=== PATIENT | female | born 1980 | race Caucasian/White ===

== ENCOUNTER 2019-11-09 11:11 | Emergency (ER) | payer BC ==
[2019-11-09] MEDS ORDERED: LIDOCAINE 1% MPF 5 ML VIAL ONE (11:56)
--- NOTE | 2019-11-09 12:15 | EDPHYS ---
Physician Documentation [facility] Name: Ruperto Rosa Age: 39 yrs Sex: Female : 1980 Arrival Date: 11/09/2019 Time: 11:14 Bed 15 Private MD: ED Physician Jaden Felix HPI: 11/08 11:39 This 39 yrs old Female presents to ER via Ambulatory with complaints of Wrist jr8 laceration. 11:39 The patient or guardian reports a laceration, clean, 2.5 cm(s), simple. The complaints jr8 affect the palmar aspect left hand near CMC region. Context: The problem was sustained at home, resulted from cutting object. Onset: The symptoms/episode began/occurred acutely, today. Modifying factors: The symptoms are alleviated by nothing, the symptoms are aggravated by nothing. Associated signs and symptoms: The patient has no apparent associated signs or symptoms. Severity of symptoms: At their worst the symptoms were mild, in the emergency department the symptoms are unchanged. The patient has not experienced similar symptoms in the past. The patient has not recently seen a physician. Historical: - Allergies: 11:23 Synthroid; ss - PMHx: 11:23 Hypothyroidism; Hypertension; ss - Immunization history:: Adult Immunizations up to date. - Social history:: Smoking status: Patient denies any tobacco usage or history of. ROS: 11:39 Eyes: Negative for injury, pain, redness, and discharge, ENT: Negative for injury, jr8 pain, and discharge, Neck: Negative for injury, pain, and swelling, Cardiovascular: Negative for chest pain, palpitations, and edema, Respiratory: Negative for shortness of breath, cough, wheezing, and pleuritic chest pain, Abdomen/GI: Negative for abdominal pain, nausea, vomiting, diarrhea, and constipation, Back: Negative for injury and pain, MS/Extremity: Negative for injury and deformity, Neuro: Negative for headache, weakness, numbness, tingling, and seizure. 11:39 Skin: Positive for laceration(s). Exam: 11:39 Constitutional: This is a well developed, well nourished patient who is awake, alert, jr8 and in no acute distress. Cardiovascular: Regular rate and rhythm with a normal S1 and S2. No gallops, murmurs, or rubs. Normal PMI, no JVD. No pulse deficits. Respiratory: Lungs have equal breath sounds bilaterally, clear to auscultation and percussion. No rales, rhonchi or wheezes noted. No increased work of breathing, no retractions or nasal flaring. MS/ Extremity: Pulses equal, no cyanosis. Neurovascular intact. Full, normal range of motion. Neuro: Awake and alert, GCS 15, oriented to person, place, time, and situation. Cranial nerves II-XII grossly intact. Motor strength 5/5 in all extremities. Sensory grossly intact. Cerebellar exam normal. Normal gait. 11:39 Skin: injury, laceration(s), the wound is approximately 2.5 cm(s), with a depth of .2 cm(s), of the palmar aspect left hand/wrist region, that can be described as no foreign body, linear, without bleeding. Vital Signs: 11:21 BP 116 / 82; Pulse 78; Resp 14; Temp 98.0(TE); Pulse Ox 99% on R/A; Weight 62.6 kg; ss Height 5 ft. 3 in. (160.02 cm); Pain 0/10; 11:21 Body Mass Index 24.45 (62.60 kg, 160.02 cm) ss Laceration: 11:39 Wound Repair of 2.5cm ( 1.0in ) subcutaneous laceration to left hand. Linear shaped.. jr8 Distal neuro/vascular/tendon intact. Anesthesia: Local anesthetic administered with 2 mls of 1% lidocaine. Wound prep: Moderate cleansing with betadine, Wound irrigation with saline, Wound explored moderately. Skin closed with 2 5-0 Prolene using interrupted sutures and sterile technique. Patient tolerated well. MDM: 11:27 Patient medically screened. jr8 11:39 Data reviewed: vital signs, nurses notes, and as a result, I will discharge patient. jr8 Data interpreted: Pulse oximetry: on room air is 99 %. Interpretation: normal. Counseling: I had a detailed discussion with the patient and/or guardian regarding: the historical points, exam findings, and any diagnostic results supporting the discharge/admit diagnosis, the need for outpatient follow up, a family practitioner, to return to the emergency department if symptoms worsen or persist or if there are any questions or concerns that arise at home. 11/08 11:39 Order name: Prolene, Sutures; Complete Time: 8 11/08 11:39 Order name: Dressing - Wound; Complete Time: 12:14 8 11/08 11:39 Order name: Gloves, Sterile; Complete Time: 8 11/08 11:39 Order name: Setup Suture Tray; Complete Time: Administered Medications: : Drug: Lidocaine (1 %) 5 mg {Note: given to [employer]FUELING [employer]END[employer] student.} Route: Infiltration; sv Disposition: 13:04 Co-signature as Attending Physician, Jaden Felix MD I agree with the assessment and kdr plan of care. Disposition: 11/09/19 12:14 Discharged to Home. Impression: Laceration without foreign body of left hand. - Condition is Stable. - Discharge Instructions: Laceration Care, Adult. - Medication Reconciliation Form, Thank You Letter, Antibiotic Education, Prescription Opioid Use form. - Follow up: Private Physician; When: 7 - 10 days; Reason: Wound Recheck, Recheck today's complaints, Continuance of care, Staple/Suture removal, Re-evaluation by your physician. - Problem is new. - Symptoms have improved. Signatures: Annette Luke RN RN Jaden Willett MD MD [facility] Liliya Zhou RN RN Pio Shepherd PA PA jr8 Li Pedraza RN RN Corrections: (The following items were deleted from the chart) 12:27 12:14 11/09/2019 12:14 Discharged to Home. Impression: Laceration without foreign body ah of left hand. Condition is Stable. Discharge Instructions: Laceration Care, Adult. Forms are Medication Reconciliation Form, Thank You Letter, Antibiotic Education, Prescription Opioid Use. Follow up: Private Physician; When: 7 - 10 days; Reason: Wound Recheck, Recheck today's complaints, Continuance of care, Staple/Suture removal, Re-evaluation by your physician. Problem is new. Symptoms have improved. jr8
--- NOTE | 2019-11-09 12:15 | ER ---
Nurse's Notes [facility] Name: Ruperto Rosa Age: 39 yrs Sex: Female : 1980 Arrival Date: 11/09/2019 Time: 11:14 Bed 15 Private MD: Diagnosis: Laceration without foreign body of left hand Presentation: 11/08 11:21 Chief complaint: Patient states: Approximately 1 cm laceration to L hand that occurred ss with blade while taking decals off of car just prior to arrival. No active bleeding noted. Coronavirus screen: Client denies travel out of the [place] in the last 14 days. At this time, the client does not indicate any symptoms associated with coronavirus-19. Ebola Screen: Patient denies exposure to infectious person. Patient denies travel to an Ebola-affected area in the 21 days before illness onset. Initial Sepsis Screen: Does the patient meet any 2 criteria? No. Patient's initial sepsis screen is negative. Does the patient have a suspected source of infection? No. Patient's initial sepsis screen is negative. Risk Assessment: Do you want to hurt yourself or someone else? Patient reports no desire to harm self or others. Onset of symptoms was November 09, 2019. 11:21 Method Of Arrival: Ambulatory ss 11:21 Acuity: YENNI 4 ss Historical: - Allergies: 11:23 Synthroid; ss - PMHx: 11:23 Hypothyroidism; Hypertension; ss - Immunization history:: Adult Immunizations up to date. - Social history:: Smoking status: Patient denies any tobacco usage or history of. Screenin:45 Abuse screen: Denies threats or abuse. Denies injuries from another. Nutritional sv screening: No deficits noted. Tuberculosis screening: No symptoms or risk factors identified. Fall Risk None identified. Assessment: 11:45 General: Appears in no apparent distress. comfortable, well groomed, well developed, sv Behavior is calm, cooperative, appropriate for age. Pain: Denies pain. Neuro: Level of Consciousness is awake, alert, obeys commands, Oriented to person, place, time, situation, Moves all extremities. Full function Gait is steady, Speech is normal. Respiratory: Respiratory effort is even, unlabored, Respiratory pattern is regular, symmetrical. Derm: Skin is pink, warm \T\ dry. Injury Description: Laceration sustained to palmar aspect of left wrist is 0.5 to 2.5 cm long, not bleeding, was sustained less than 30 minutes ago. Vital Signs: 11:21 BP 116 / 82; Pulse 78; Resp 14; Temp 98.0(TE); Pulse Ox 99% on R/A; Weight 62.6 kg; Height 5 ft. 3 in. (160.02 cm); Pain 0/10; 11:21 Body Mass Index 24.45 (62.60 kg, 160.02 cm) ED Course: 11:14 Patient arrived in ED. mr 11:22 Triage completed. ss 11:23 Arm band placed on right wrist. 11:27 Pio Shepherd PA is PHCP. [facility] 11:27 Jaden Felix MD is Attending Physician. [facility] 11:36 Annette Luke, RN is Primary Nurse. sv 11:45 Patient has correct armband on for positive identification. Bed in low position. Call sv light in reach. Door closed. Head of bed elevated. 11:45 Assist provider with laceration repair Set up tray. sv 12:26 Patient did not have IV access during this emergency room visit. Administered Medications: 11:52 Drug: Lidocaine (1 %) 5 mg {Note: given to [employer] student.} Route: Infiltration; sv Outcome: 12:14 Discharge ordered by . jr 12:26 Discharged to home ambulatory. 12:26 Condition: good 12:26 Discharge instructions given to patient, Instructed on discharge instructions, follow up and referral plans. wound care, Demonstrated understanding of instructions, follow-up care, wound care. 12:27 Patient left the ED. Signatures: Annette Luke, RN KATHLEEN EstradaMadeline mr Liliya Zhou, KATHLEEN WANG Pio Shepherd PA PA [facility] Li Pedraza RN KATHLEEN
[2019-11-09 12:32] VITALS: BP 116/82; TEMP 98; O2SAT 99
== END 2019-11-09 12:27 | disposition home or self-care (01) ==
LOC: ER 11:11
PROC: 0JQK0ZZ Repair Left Hand Subcutaneous Tissue and Fascia, Open Approach (ICD-10-PCS; principal; 2019-11-09)
DX: S61.412A Laceration without foreign body of left hand, initial encounter (principal); W45.8XXA Other foreign body or object entering through skin, initial encounter; Y93.9 Activity, unspecified; Y92.009 Unspecified place in unspecified non-institutional (private) residence as the place of occurrence of the external cause; I10 Essential (primary) hypertension; Z91.048 Other nonmedicinal substance allergy status
CPT/HCPCS: 99283